=== PATIENT | male | born 1960 | race Caucasian/White ===

== ENCOUNTER → 2018-05-28 | Outpatient (CLI) | payer MEDICARE ==
[~2018-05-28] MED LIST: IOPAMIDOL 370 MG/ML 200 ML INFUS..BTL INJ ONE; SODIUM CHLORIDE 0.9% 100 ML 100 ML ONE
[2018-05-28 14:02] LABS: BLOOD UREA NITROGEN 14 mg/dL (7-26); BUN/CREATININE RATIO 18 (6-25); CREATININE, SERUM 0.78 mg/dL (0.72-1.25); EST GLOMERULAR FILTRATION RATE > 60 ML/MIN (60-)
--- NOTE | 2018-05-28 16:42 | Diagnostic Imaging Report ---
PROCEDURE: CTA ABD/PEL/BILATERAL LOWER EXT RUNOFF W & W/O CONTRAST COMPARISON:None. INDICATIONS:PAD TECHNIQUE: Multi-detector CT technology with Dose Reduction was employed. Images were obtained after the administration of 100 cc of Isovue-370 intravenously. For optimization of anatomic evaluation, multiplanar and volume rendering reconstructions were performed. Advanced 3-D off-line postprocessing were performed on a dedicated stand-alone workstation under the direct supervision of the interpreting physician. Low dose technique was utilized to effectively make the dose as low as possible to the patient. DLP: 1377.77 mGy-cm FINDINGS: Abdominal aorta and iliac vessels: Scattered atherosclerotic changes are present throughout the abdominal aorta and bilateral lower extremity runoff. The superior mesenteric, inferior mesenteric and celiac arteries are patent. Bilateral renal arteries are patent. The common, internal and external iliac arteries are patent bilaterally. Femoral-popliteal vessels: No significant stenosis noted. The common, superficial, and profunda femoral arteries are patent. Infrapopliteal vessels: No significant stenosis noted. The above the knee and below the knee segments of the popliteal artery are patent. The anterior tibial, posterior tibial, and peroneal arteries are patent. Patent three vessel runoff is present in the feet bilaterally. Abdominal and Pelvic soft-tissues and organs: Lung bases: No focal consolidation or parenchymal mass. No pleural effusion or pneumothorax. There is a pleural-based 3 mm nodule in the lateral left lower lobe. Followup chest x-ray in one year would be of benefit. Liver: Normal parenchyma. No focal mass. Biliary: Normal gallbladder. No intrahepatic or extrahepatic biliary duct dilation. Spleen: No focal mass or enlargement. Pancreas: Normal enhancement. No pancreatic duct dilation. No focal mass or peripancreatic soft tissue inflammatory changes. Adrenal Glands: No adrenal nodules. Kidneys: No obstructing calculi or hydronephrosis. A 1.8 cm mid pole exophytic lesion involving the left kidney may represent a hyperdense cyst but has CT attenuation numbers of 25-50 Hounsfield units which is more suggestive of a solid lesion. Renal sonography would be of benefit for further characterization. GI: The stomach, small bowel, and colon are unremarkable. No air-fluid levels. Normal appendix. A moderate amount of retained feces limits intraluminal evaluation of the colon. Peritoneum/Retroperitoneum: No pneumoperitoneum or free intraperitoneal fluid. No lymphadenopathy. No drainable fluid collection. Reproductive Organs: Normal. Musculoskeletal: No acute sclerotic or lucent lesion. Degenerative changes of the lumbar spine and knees. Synovial osteochondromatosis of the right knee. CONCLUSION: 1. Mild atherosclerotic calcification within the aorta. 2. Normal bilateral lower extremity runoff without evidence of stenosis or occlusion. 3. Indeterminant left exophytic renal lesion. Renal sonography is recommended for further evaluation. 4. Right knee synovial osteochondroma. 5. Left lower lobe pleural-based pulmonary nodule. Keo Gu D.O. Dictated by: Keo Gu D.O. on 05/28/2018 at 16:55 Electronically approved by: Keo Gu D.O. on 05/28/2018 at 16:55
== END ==
LOC: CT 12:11
PROVIDERS: ATTEND Internal Medicine
DX: E11.51 Type 2 diabetes mellitus with diabetic peripheral angiopathy without gangrene (principal); M79.605 Pain in left leg; M79.604 Pain in right leg
CPT/HCPCS: 36415; 75635; 82565; 84520; Q9967

== ENCOUNTER → 2020-01-26 | Outpatient (CLI) | payer MEDICARE ==
--- NOTE | 2020-01-26 14:01 | Diagnostic Imaging Report ---
EXAMINATION: Cervical spine radiographs - 6 views. CLINICAL HISTORY: Cervical spondylosis COMPARISON: None. DISCUSSION: The cervical spine is visualized from the skull base to C6. Cervicothoracic junction is partially obscured on lateral view by overlying bones/soft tissues which partially limits evaluation. No acute displaced fractures given exam limitations. Visualized cervical vertebral body heights are relatively preserved. Straightening of the cervical lordosis with mild anterolisthesis at C3 on C4. Multilevel degenerative disc changes, most probably severe at C5-C6. Multilevel uncovertebral and facet arthropathy which is moderate at C5-C6. Degenerative findings result in mild to moderate osseous narrowing of the left-sided neuroforamen at C3-C4 and C5-C6. No significant osseous narrowing of right-sided neural foramen The soft tissues are unremarkable. Subtle fractures, ligamentous or soft tissue injuries cannot be excluded on the basis of this examination. IMPRESSION: 1. No acute osseous abnormality given exam limitations. 2. Multilevel degenerative changes, most notably moderate to severe at C5-C6. 3. Degenerative findings result in mild to moderate osseous narrowing of left-sided neuroforamen at C3-C4 and C5-C6. Signed by: Dr. Kiran Rodríguez M.D. on 01/26/2020 1:57 PM
== END ==
LOC: RAD 12:31
PROVIDERS: ATTEND Internal Medicine
DX: M47.812 Spondylosis without myelopathy or radiculopathy, cervical region (principal)
CPT/HCPCS: 72050

== ENCOUNTER → 2020-10-09 | Outpatient (CLI) | payer MEDICARE | LOC: CT 07:46 | PROVIDERS: ATTEND Internal Medicine | DX: Z12.2 Encounter for screening for malignant neoplasm of respiratory organs (principal); F17.200 Nicotine dependence, unspecified, uncomplicated | CPT/HCPCS: 71250 ==

== ENCOUNTER → 2020-11-08 | Outpatient (CLI) | payer OTHER | LOC: US 07:30 | PROVIDERS: ATTEND Internal Medicine | DX: E78.5 Hyperlipidemia, unspecified (principal) | CPT/HCPCS: 76705 ==